=== PATIENT | male | born 1975 | race Caucasian/White ===

== ENCOUNTER 2020-05-11 15:15 | Emergency (ER) | payer OTHER, SELFPAY ==
[2020-05-11 15:23] VITALS: BP 144/81; PULSE 95; RESP 14; TEMP 37.4; O2SAT 97
== END 2020-05-11 15:23 | disposition left against medical advice (07) ==
PROVIDERS: Emergency Provider Internal Medicine Hematology & Oncology
DX: Z53.21 Procedure and treatment not carried out due to patient leaving prior to being seen by health care provider (principal)
CPT/HCPCS: 99199

== ENCOUNTER 2021-03-22 16:36 | Emergency (ER) | payer OTHER, SELFPAY ==
--- NOTE | ~2021-03-22 | XR_ITS ---
EXAMINATION: XR chest 2V 03/22/2021 17:04 INDICATION: COPD. Cough. Pneumonia. PROCEDURE: 2 view chest COMPARISON: No prior studies for comparison. FINDINGS: The lungs are clear. The cardiomediastinal silhouette is within normal limits. There are no pleural effusions. There is no pneumothorax suspected. IMPRESSION: 1: NO ACUTE CARDIOPULMONARY DISEASE. Reviewed, dictated and finalized at location A.
[2021-03-22 16:40] VITALS: BP 121/83; PULSE 94; RESP 18; TEMP 36.9; O2SAT 99
--- NOTE | 2021-03-22 16:44 | ED.URI ---
HPI - URI/Sore Throat General Chief Complaint: Upper Respiratory Infection Stated Complaint: fever cough congestion Time Seen by Provider: 03/22/21 16:45 Source: patient and RN notes reviewed History of Present Illness HPI Narrative: Patient is a 45-year-old male who presents the urgent care with complaints of 3-day history of fever, coughing, congestion, intermittent shortness of breath and headaches. Patient states that he was admitted to the hospital last week for pneumonia and was recently discharged. Patient believes he may now have Covid . Patient did get discharged with an inhaler and has been using as needed for shortness of breath. Patient has not used anything [id number] for his symptoms. No other acute complaints. No acute distress noted. Patient aware of the plan of care. Some parts of this dictation were generated by voice recognition software and may contain typographical and/or grammatical inaccuracies. Related Data Home Medications Medication Instructions Recorded Confirmed alprazolam 0.5 mg PO DIRECTED PRN 03/22/21 03/22/21 dicyclomine 10 mg PO QID 03/22/21 03/22/21 famotidine 40 mg PO DAILY 03/22/21 03/22/21 fluticasone propionate 50 mcg INTRANASAL DIRECTED 03/22/21 03/22/21 ipratropium-albuterol 0.5 ml INHALATION DIRECTED PRN 03/22/21 03/22/21 Allergies Allergy/AdvReac Type Severity Reaction Status Date / Time cephalexin Allergy Unknown Hives / Verified 02/11/16 13:55 Red Face ketorolac Allergy Unknown Hives / Verified 02/11/16 13:56 Red Face sulfamethoxazole Allergy Unknown Hives / Verified 02/11/16 13:55 Red Face tramadol Allergy Unknown Hives / Verified 02/11/16 13:56 Red Face trimethoprim Allergy Unknown Hives / Verified 02/11/16 13:55 Red Face Review of Systems Review of Systems: Narrative: CONSTITUTIONAL: Reports of fevers EYES: Denies visual changes, redness, or discharge. ENT: Reports a scratchy throat and sinus congestion CARDIOVASCULAR: Denies chest pain, palpitations, or edema. RESPIRATORY: Reports of chest congestion, cough and intermittent dyspnea associated with his COPD GASTROINTESTINAL: Denies abdominal pain, nausea, vomiting, or diarrhea. GENITOURINARY: Denies dysuria or hematuria. SKIN: Denies rash or itching. MUSCULOSKELETAL: Denies back pain, joint pain. Reports of body aches NEUROLOGIC: Reports of intermittent headaches All other systems reviewed are negative, except as documented in HPI. PMFSH Social History Social History Gender identity (if verbalized by the patient): Male Comments At the time of my signature, I reviewed and agree with the nursing past medical, surgical, social, and family history. There is no relevant family history pertinent to the patient complaint. Exam Narrative: Exam Narrative: GENERAL: This is a well-nourished, well-developed patient, appears slightly fatigued HEAD: normocephalic, atraumatic. EYES: PERRL. Sclera clear/white. Vision is grossly intact. EARS: External ears normal, auditory canals clear and without drainage, TMs normal without perforation. Hearing grossly intact. NOSE: External nose normal with no obvious nasal discharge, nares without redness, no rhinorrhea. THROAT: Mucous membranes moist, mild erythema noted to posterior oropharynx with moderate postnasal drainage NECK: Neck supple, non-tender without lymphadenopathy CARDIOVASCULAR: Regular rate and rhythm without murmurs, gallops, or rubs. RESPIRATORY: Harsh dry cough throughout exam. Clear to auscultation. Breath sounds equal bilaterally. No wheezes, rales, or rhonchi. SKIN: warm, intact with no suspicious lesions or rash, good texture and turgor. NEURO: awake, alert, and oriented to person, place and time. There were no obvious focal neurologic abnormalities. EXTREMITIES: No clubbing, cyanosis, or edema. Course Vital Signs Vital signs: Vital Signs Temperature 98.4 F 03/22/21 16:40 Pulse Rate 94 03/22/21 16:40 Respiratory
[2021-03-24 19:26] LABS: SARS-CoV-2 RNA PCR Negative
== END 2021-03-22 17:46 | disposition home or self-care (01) ==
PROVIDERS: Emergency Provider Nurse Practitioner Family; PCP Family Medicine
DX: J40 Bronchitis, not specified as acute or chronic (principal); Z20.822 Contact with and (suspected) exposure to COVID-19; G25.81 Restless legs syndrome; J44.9 Chronic obstructive pulmonary disease, unspecified; K21.9 Gastro-esophageal reflux disease without esophagitis; F41.9 Anxiety disorder, unspecified
CPT/HCPCS: 71046; 87081; 87426; 87804; 87880; 99213; C9803; G0463; U0003; U0005

== ENCOUNTER 2022-03-06 13:51 | Emergency (ER) | payer OTHER, SELFPAY ==
[2022-03-06 13:58] VITALS: BP 120/82; PULSE 113; RESP 20; TEMP 36.6; O2SAT 98
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
[2022-03-06 14:40] VITALS: BP 73/51; PULSE 83; O2SAT 97
[2022-03-06 14:45] VITALS: BP 80/60
[2022-03-06 14:50] VITALS: BP 88/62
--- NOTE | 2022-03-06 15:35 | PC.NURSE ---
1435 [employer] AT BEDSIDE PREPPING PT TO INJECT LIDOCAINE TO WOUND FOR REPAIR AND PT BECAME PALE AND SWEATY COMPLAINING OF FEELING LIGHTHEADED AND DIZZY. BLOOD PRESSURE MANUALLY 73/51. PT LAYED FLAT AND DECISION MADE TO TRASFER PT TO ER. EMS CALLED. RITIKA ISABEL RN
== END 2022-03-06 14:43 | disposition short-term general hospital (02) ==
PROVIDERS: Emergency Provider Nurse Practitioner Family; PCP Family Medicine
DX: S01.412A Laceration without foreign body of left cheek and temporomandibular area, initial encounter (principal); S01.112A Laceration without foreign body of left eyelid and periocular area, initial encounter; Y04.2XXA Assault by strike against or bumped into by another person, initial encounter
CPT/HCPCS: 99215; G0463; J7030

== ENCOUNTER 2022-03-12 13:29 | Emergency (ER) | payer OTHER, SELFPAY ==
[2022-03-12 13:34] VITALS: BP 120/57; PULSE 116; RESP 18; TEMP 36.1; O2SAT 97
--- NOTE | 2022-03-12 14:29 | ED.WOUNDLAC ---
HPI - Wound/Laceration General Chief Complaint: Wound/Laceration Stated Complaint: Suture Removed Source: patient and RN notes reviewed Mode of arrival: ambulatory Limitations: no limitations Related Data Home Medications Medication Instructions Recorded Confirmed alprazolam 0.5 mg PO DIRECTED PRN 03/22/21 03/12/22 dicyclomine 10 mg PO QID 03/22/21 03/12/22 famotidine 40 mg PO DAILY 03/22/21 03/12/22 fluticasone propionate 50 mcg INTRANASAL DIRECTED 03/22/21 03/12/22 albuterol sulfate 1 inh INHALATION QID 03/06/22 03/12/22 Allergies Allergy/AdvReac Type Severity Reaction Status Date / Time cephalexin Allergy Unknown Hives / Verified 03/12/22 13:46 Red Face ketorolac Allergy Unknown Hives / Verified 03/12/22 13:46 Red Face sulfamethoxazole Allergy Unknown Hives / Verified 03/12/22 13:46 Red Face tramadol Allergy Unknown Hives / Verified 03/12/22 13:46 Red Face trimethoprim Allergy Unknown Hives / Verified 03/12/22 13:46 Red Face Review of Systems Review of Systems: CONSTITUTIONAL: Denies malaise, chills, sweats, or fever. SKIN: Reports intact sutures to the left eyebrow and left cheek. Denies any complications, drainage, increased pain. MUSCULOSKELETAL: Denies muscle skeletal pain NEUROLOGIC: Denies numbness, weakness All systems reviewed & are unremarkable except as noted in HPI and below PMFSH Social History Social History Gender identity (if verbalized by the patient): Male Comments At time of signature, agree with nursing past medical, surgical, social and family history. There is no relevant family history pertinent to the presenting complaint Exam Narrative: GENERAL: Well-appearing, well-nourished, and in no acute distress. HEAD: Normocephalic, atraumatic. EYES: PERRLA, conjunctivae clear, and EOMI. ENT: Mucous membranes moist. Oropharynx without edema, erythema or lesions. NECK: Supple. No lymphadenopathy CHEST: Clear to auscultation. No respiratory distress. HEART: Regular rate and rhythm. SKIN: Warm, dry. 3 intact sutures noted to the left cheek, wound well approximated, without scabbing, drainage, erythema, induration. 3 intact sutures noted in the eyebrow without surrounding erythema, induration, drainage, wound well approximated NEURO: Alert and oriented x3. PSYCH: Normal mood and affect Course Course Emergency Course: Patient is aware of diagnosis, understands and agrees to treatment plan. Anticipatory guidance given. Patient agrees to follow-up as directed and is aware of reasons to seek care at the emergency department. Portions of this record may have been created with voice recognition software Level of Care: Express Care Visit Vital Signs Vital signs: Vital Signs Temperature 97 F L 03/12/22 13:34 Pulse Rate 116 H 03/12/22 13:34 Respiratory Rate 18 03/12/22 13:34 Blood Pressure 120/57 L 03/12/22 13:34 Pulse Oximetry 97 03/12/22 13:34 Temperature 97 F L 03/12/22 13:34 Pulse Rate 116 H 03/12/22 13:34 Respiratory Rate 18 03/12/22 13:34 Blood Pressure 120/57 L 03/12/22 13:34 Pulse Oximetry 97 03/12/22 13:34 Reviewed. MDM - Wound/Laceration MDM Narrative Medical decision making narrative: Verbal consent was obtained. Wound well approximated, no erythema, induration, or discharge noted. 6 simple interrupted completely removed in a sterile fashion. Patient tolerated procedure well, no complications. Patient advised to look for and return for any signs of infection such as redness, swelling, discharge, or worsening pain. Differential Diagnosis Differential diagnosis: Likely laceration, abrasion and avulsion of skin Critical Care Time Critical Care Time Critical Care Time: No Discharge Plan Discharge Clinical Impression: Visit for suture removal Patient Disposition: Home, Self-Care Condition: Stable Instructions: Stitches Removal (ED) Additio
== END 2022-03-12 14:40 | disposition home or self-care (01) ==
PROVIDERS: Emergency Provider Nurse Practitioner; PCP Family Medicine
DX: S01.412D Laceration without foreign body of left cheek and temporomandibular area, subsequent encounter (principal); S01.119D Laceration without foreign body of unspecified eyelid and periocular area, subsequent encounter; X58.XXXD Exposure to other specified factors, subsequent encounter; J44.9 Chronic obstructive pulmonary disease, unspecified; K21.9 Gastro-esophageal reflux disease without esophagitis; F41.9 Anxiety disorder, unspecified
CPT/HCPCS: 99211; G0463

== ENCOUNTER 2022-03-15 13:14 | Emergency (ER) | payer OTHER, SELFPAY ==
--- NOTE | ~2022-03-15 | XR_ITS ---
EXAMINATION: XR abdomen/kub 1V DATE: 03/15/2022 14:10 INDICATION: Mid to upper abdominal pain. TECHNIQUE: A supine view of the abdomen on 4 radiographs was obtained. COMPARISON: None. FINDINGS: There are no dilated loops of bowel. There is a small volume of stool in the colon. Calcifi cations in the pelvis are likely phleboliths. IMPRESSION: 1. Normal bowel gas pattern. Reviewed, dictated and finalized at location B.
--- NOTE | 2022-03-15 13:18 | ED.CHESTPAIN ---
HPI - Chest Pain General Chief Complaint: Abdominal Pain Time Seen by Provider: 03/15/22 13:25 Source: patient Mode of arrival: ambulatory Limitations: no limitations History of Present Illness HPI narrative: Mr. Fan is a 46-year-old male patient presenting to the clinic today with complaints of midepigastric pain as well as nausea, vomiting, and diarrhea. He reports the symptoms began last night with some vomiting and epigastric discomfort. He has a history of gastritis and diarrhea in the past. He denies any fever or chills. He denies any chest pain or shortness of breath. Related Data Home Medications Medication Instructions Recorded Confirmed alprazolam 0.5 mg PO DIRECTED PRN 03/22/21 03/15/22 famotidine 40 mg PO DAILY 03/22/21 03/15/22 fluticasone propionate 50 mcg INTRANASAL DIRECTED 03/22/21 03/15/22 albuterol sulfate 1 inh INHALATION QID 03/06/22 03/15/22 amitriptyline 25 mg PO QPM 03/15/22 03/15/22 aripiprazole 10 mg PO DAILY 03/15/22 03/15/22 fenofibrate 160 mg PO DAILY 03/15/22 03/15/22 fluoxetine 60 mg PO DAILY 03/15/22 03/15/22 meloxicam 15 mg PO PRN 03/15/22 03/15/22 Allergies Allergy/AdvReac Type Severity Reaction Status Date / Time cephalexin Allergy Unknown Hives / Verified 03/15/22 13:27 Red Face ketorolac Allergy Unknown Hives / Verified 03/15/22 13:27 Red Face sulfamethoxazole Allergy Unknown Hives / Verified 03/15/22 13:27 Red Face tramadol Allergy Unknown Hives / Verified 03/15/22 13:27 Red Face trimethoprim Allergy Unknown Hives / Verified 03/15/22 13:27 Red Face Review of Systems Review of Systems: Pertinent positives per HPI. Patient denies any fever, chills, rash, headache, visual changes, dizziness, cough, runny nose, sore throat, shortness of breath, chest pain, palpitations, constipation, or any urinary issues. [facility] Social History Social History Gender identity (if verbalized by the patient): Male Comments At the time of my signature, I reviewed and agree with the nursing past medical, surgical, social, and family history. There is no relevant family history pertinent to the patient complaint. Exam Narrative: General: Well-developed, morbidly obese, in no apparent distress. Head: Normocephalic, atraumatic. Cardio: Regular rate and rhythm, s1 and s2 normal, no murmur appreciated. Resp: Clear to auscultation bilaterally, no rhonchi, rales, wheezing or rubs. Abdomen: Soft, distended, pliable, tenderness to palpation over the mid epigastrium, bowel sounds present in all quadrants, no organomegly, no CVAT tenderness. Course Course Emergency Course: Portions of this record may have been created with voice recognition software. Level of Care: Express Care Visit Vital Signs Vital signs: Vital Signs Temperature 36.9 C 03/15/22 13:20 Pulse Rate 104 H 03/15/22 13:20 Respiratory Rate 16 03/15/22 13:20 Blood Pressure 155/85 H 03/15/22 13:20 Pulse Oximetry 97 03/15/22 13:20 Temperature 36.9 C 03/15/22 13:20 Pulse Rate 104 H 03/15/22 13:20 Respiratory Rate 16 03/15/22 13:20 Blood Pressure 155/85 H 03/15/22 13:20 Pulse Oximetry 97 03/15/22 13:20 Vital signs reviewed MDM - Chest Pain MDM Narrative Medical decision making narrative: At the time of visit patient is resting on the exam table. Has midepigastric pain along with nausea vomiting and diarrhea x2 days. Abdomen x-ray was completed and x-ray is negative for any sign of obstruction, impaction, or constipation. I suspect the patient may have gastritis/gastroenteritis and will treat with a prescription for Protonix, Carafate, and zofran. Discharge Plan Discharge Clinical Impression: Gastritis Qualifiers: Gastritis type: unspecified gastritis Chronicity: acute Gastritis bleeding: without bleeding Qualified Code(s): K29.00 - Acute gastritis without bleeding Patient Disposition: Home, Self-Care Con
[2022-03-15 13:20] VITALS: BP 155/85; PULSE 104; RESP 16; TEMP 36.9; O2SAT 97
== END 2022-03-15 14:32 | disposition home or self-care (01) ==
PROVIDERS: Emergency Provider Nurse Practitioner Family; PCP Family Medicine
DX: K29.00 Acute gastritis without bleeding (principal)
CPT/HCPCS: 74018; 99213; G0463

== ENCOUNTER 2022-04-05 13:30 | Emergency (ER) | payer OTHER, SELFPAY ==
--- NOTE | ~2022-04-05 | XR_ITS ---
XR ribs LT 2V DATE: 04/05/2022 14:34 INDICATION: Posterior left rib pain since this morning. TECHNIQUE: 3 views COMPARISON: 03/22/2021 2 view chest FINDINGS: Normal heart size. No pulmonary infiltrate or consolidation, pulmonary vascular congestion or pleural effusion or pneumothorax. There are old healed left posterolateral fourth through seventh rib fractures. No recent rib fracture or bone destruction is detected. IMPRESSION: Old left fourth through seventh rib fractures Reviewed, dictated and finalized at location A.
[2022-04-05 13:35] VITALS: BP 141/76; PULSE 99; RESP 16; TEMP 36.6; O2SAT 96
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
== END 2022-04-05 15:06 | disposition home or self-care (01) ==
PROVIDERS: Emergency Provider Nurse Practitioner; PCP Family Medicine
DX: M54.9 Dorsalgia, unspecified (principal); E78.00 Pure hypercholesterolemia, unspecified; J44.9 Chronic obstructive pulmonary disease, unspecified; K21.9 Gastro-esophageal reflux disease without esophagitis; G25.81 Restless legs syndrome; F41.9 Anxiety disorder, unspecified; F32.A Depression, unspecified
CPT/HCPCS: 71100; 81003; 99213; G0463

== ENCOUNTER 2023-08-03 09:20 | Emergency (ER) | payer OTHER, SELFPAY ==
--- NOTE | 2023-08-03 09:21 | ED.URI ---
HPI - URI/Sore Throat General Chief Complaint: Upper Respiratory Infection Stated Complaint: Congestion/Cough/Chills Time Seen by Provider: 08/03/23 09:21 Source: patient Mode of arrival: ambulatory Limitations: no limitations History of Present Illness HPI Narrative: Jorge is a 47-year-old male patient presenting to the clinic today with complaints of cough, congestion, and chills that just started this morning upon awakening. He reports no known exposure to anyone with COVID, flu, or strep. Cough is nonproductive. MD elicited complaint: cough (Chills) and nasal congestion Related Data Home Medications Medication Instructions Recorded Confirmed alprazolam 0.5 mg tablet 0.5 mg PO DIRECTED PRN Anxiety 03/22/21 04/05/22 famotidine 40 mg tablet 40 mg PO DAILY 03/22/21 04/05/22 amitriptyline 25 mg tablet 25 mg PO QPM 03/15/22 04/05/22 aripiprazole 10 mg tablet 10 mg PO DAILY 03/15/22 04/05/22 fenofibrate 160 mg tablet 160 mg PO DAILY 03/15/22 04/05/22 fluoxetine 20 mg capsule 60 mg PO DAILY 03/15/22 04/05/22 Allergies Allergy/AdvReac Type Severity Reaction Status Date / Time cephalexin Allergy Unknown Hives / Verified 04/05/22 13:46 Red Face ketorolac Allergy Unknown Hives / Verified 04/05/22 13:46 Red Face sulfamethoxazole Allergy Unknown Hives / Verified 04/05/22 13:46 Red Face trimethoprim Allergy Unknown Hives / Verified 04/05/22 13:46 Red Face Review of Systems Review of Systems: Pertinent positives per HPI. Patient denies any fever, rash, headache, visual changes, dizziness, shortness of breath, chest pain, palpitations, nausea, vomiting, diarrhea, constipation, abdominal pain, or any urinary issues. [facility] Social History Social History Gender identity (if verbalized by the patient): Male Comments At the time of my signature, I reviewed and agree with the nursing past medical, surgical, social, and family history. There is no relevant family history pertinent to the patient complaint. Exam Narrative: General: Well-developed, morbidly obese, in no apparent distress Head: Normocephalic, atraumatic Eyes: Pupils equally round and reactive to light bilaterally, EOM intact, sclera and conjunctive clear, no discharge, lids normal Ears: TMs intact and congested, ear canals clear, no drainage, grossly hearing normal. Nose: Nares patent, clear nasal discharge, mild inflammation, no sinus tenderness. Mouth: Oral pharynx red without lesions or masses, good dentition, MMM. Postnasal drip Neck: Supple, trachea midline, no enlargement of anterior or posterior cervical nodes, no thyroid masses or goiter palpable. Cardio: Regular rate and rhythm, s1 and s2 normal, no murmur appreciated. Resp: Clear to auscultation bilaterally, no rhonchi, rales, wheezing or rubs Course Course Emergency Course: Portions of this record may have been created with voice recognition software. Level of Care: Express Care Visit Vital Signs Vital signs: Vital signs reviewed MDM - URI/Sore Throat MDM Narrative Medical decision making narrative: At the time of visit patient is resting comfortably on the exam table. COVID testing was performed and was negative in the clinic today. I suspect the patient has URI. Retesting for COVID in 1-2 days. Supportive measures were discussed with the patient he voiced understanding discharge instructions and agrees to treatment plan. Differential Diagnosis Differential diagnosis: Likely upper respiratory infection, otitis media, sinusitis, viral infection, bronchitis, influenza, pharyngitis and other (COVID) Discharge Plan Discharge Clinical Impression: Upper respiratory infection Qualifiers: URI type: unspecified URI Qualified Code(s): J06.9 - Acute upper respiratory infection, unspecified Patient Disposition: Home, Self-Care Condition: Stable Instructions: Antibiotic Form, Upper Respiratory
[2023-08-03 09:26] VITALS: BP 145/77; PULSE 90; RESP 20; TEMP 36.6; O2SAT 97
== END 2023-08-03 10:00 | disposition home or self-care (01) ==
PROVIDERS: Emergency Provider Nurse Practitioner Family; PCP Family Medicine
DX: J06.9 Acute upper respiratory infection, unspecified (principal); Z20.822 Contact with and (suspected) exposure to COVID-19
CPT/HCPCS: 87426; 99213; C9803; G0463

== ENCOUNTER 2023-11-15 08:51 | Emergency (ER) | payer OTHER, SELFPAY ==
[2023-11-15 08:56] VITALS: BP 136/86; PULSE 103; RESP 16; TEMP 36.9; O2SAT 100
--- NOTE | 2023-11-15 09:03 | ED.URI ---
HPI - URI/Sore Throat General Chief Complaint: Upper Respiratory Infection Stated Complaint: aches/headache Time Seen by Provider: 11/15/23 09:04 Source: patient and RN notes reviewed Mode of arrival: ambulatory Limitations: no limitations History of Present Illness HPI Narrative: 48 y/o male presented for c/o headache, body aches, sinus pressure/congestion, cough, nausea, fever/chills. Onset yesterday. Denies sore throat, sob, wheezing, v/d. Took Tylenol today. Girlfriend with similar symptoms. Smokes 1/4ppd. MD elicited complaint: cough Related Data Home Medications Medication Instructions Recorded Confirmed alprazolam 0.5 mg tablet 0.5 mg PO DIRECTED PRN Anxiety 03/22/21 11/15/23 famotidine 40 mg tablet 40 mg PO DAILY 03/22/21 11/15/23 amitriptyline 25 mg tablet 25 mg PO QPM 03/15/22 11/15/23 aripiprazole 10 mg tablet 10 mg PO DAILY 03/15/22 11/15/23 fenofibrate 160 mg tablet 160 mg PO DAILY 03/15/22 11/15/23 fluoxetine 20 mg capsule 60 mg PO DAILY 03/15/22 11/15/23 modafinil 200 mg tablet 200 mg PO DAILY 11/15/23 11/15/23 Allergies Allergy/AdvReac Type Severity Reaction Status Date / Time cephalexin Allergy Unknown Hives / Verified 11/15/23 09:04 Red Face ketorolac Allergy Unknown Hives / Verified 11/15/23 09:04 Red Face sulfamethoxazole Allergy Unknown Hives / Verified 11/15/23 09:04 Red Face trimethoprim Allergy Unknown Hives / Verified 11/15/23 09:04 Red Face Review of Systems Review of Systems: CONSTITUTIONAL: Endorses malaise, chills, sweats, fever EYES: Denies visual changes, redness, or discharge ENT: Reports rhinorrhea, congestion, denies otalgia, sore throat CARDIOVASCULAR: Denies chest pain, palpitations, edema RESPIRATORY: Reports cough, post nasal drainage. Denies dyspnea GASTROINTESTINAL: Denies abdominal pain, vomiting, diarrhea SKIN: Denies rash or itching MUSCULOSKELETAL: Endorses myalgia PMFSH Past Medical History Medical History (Updated 11/15/23 @ 09:19 by Vidhya Chairez, [employer]) COPD (chronic obstructive pulmonary disease) Social History Social History (Updated 11/15/23 @ 09:14 by Vidhya Chairez APRN) Smoking packs per day: 0.25 Smoking cigarettes per day: 5.0 Smoking status: Current every day smoker Tobacco type: cigarettes Substance use type: marijuana Gender identity (if verbalized by the patient): Male Exam Narrative: GENERAL: mildly Ill-appearing, nontoxic no acute distress. EYES: PERRLA, conjunctivae clear ENT: Mucous membranes moist. TMs pearly alfred with dull light reflex bilaterally; no tragal tenderness. Oropharynx erythematous without lesions or exudate, no drooling, no hoarseness, no trismus, uvula midline. No tripod positioning, muffled voice, soft palate or pharyngeal wall bulging NECK: Supple. No lymphadenopathy CHEST: Clear to auscultation, breath sounds equal. No wheezing, rhonchi, rales, or stridor. No respiratory distress, speaks in full sentences. HEART: Regular rate and rhythm. No murmur heard. SKIN: Warm, dry, no rash. NEURO: Alert and oriented x3. PSYCH: Normal mood and affect Course Course Emergency Course: Patient is aware of diagnosis, understands and agrees to treatment plan. Anticipatory guidance given. Patient agrees to follow-up as directed and is aware of reasons to seek care at the emergency department. Portions of this record may have been created with voice recognition software Level of Care: Express Care Visit Vital Signs Vital signs: Vital Signs Temperature 98.5 F 11/15/23 08:56 Pulse Rate 103 H 11/15/23 08:56 Respiratory Rate 16 11/15/23 08:56 Blood Pressure 136/86 11/15/23 08:56 Pulse Oximetry 100 11/15/23 08:56 Oxygen Delivery Room Air 11/15/23 08:56 Temperature 98.5 F 11/15/23 08:56 Pulse Rate 103 H 11/15/23 08:56 Respiratory Rate 16 11/15/23 08:56 Blood Pressure 136/86 11/15/23 08:56 Pulse Oximetry 100 11/15/23 08:56 Oxygen Delivery Nneka
== END 2023-11-15 09:31 | disposition home or self-care (01) ==
PROVIDERS: Emergency Provider Nurse Practitioner Family; PCP Family Medicine
DX: B34.9 Viral infection, unspecified (principal); Z20.822 Contact with and (suspected) exposure to COVID-19; F17.210 Nicotine dependence, cigarettes, uncomplicated; F12.90 Cannabis use, unspecified, uncomplicated; J44.9 Chronic obstructive pulmonary disease, unspecified
CPT/HCPCS: 87426; 87804; 99213; G0463